=== PATIENT | female | born 1970 | race Caucasian/White ===

== ENCOUNTER 2023-01-22 10:23 | Day surgery (SDC) | payer BC ==
[2023-01-19 16:23] LABS: Absolute Lymphocytes (CBC) 2.5 K/uL (0.7-4.9); Hematocrit 45.3 % (36.0-45.0); Lymphocytes % 30.3 % (15.3-44.8); MCV 89.1 fL (80-100); MPV 7.9 fL (7.6-11.3); Platelets 314 thou/uL (152-406); RBC Red Blood Cell Count 5.08 M/uL (3.86-4.86)
[2023-01-19 16:45] LABS: Albumin 4.1 g/dL (3.4-5.0); Bilirubin Direct 0.2 mg/dL (0-0.2); Bilirubin Indirect, Calculated 0.4 mg/dL (0.2-0.8); Bilirubin Total 0.6 mg/dL (0.2-1.0); Potassium 3.6 mEq/L (3.5-5.1); Protein, Total 7.6 g/dL (6.4-8.2)
--- NOTE | 2023-01-19 16:58 | RAD REPORT ---
EXAM DESCRIPTION: RAD - Chest Pa And Lat (2 Views) - 01/19/2023 4:07 pm CLINICAL HISTORY: Pre op pending cholecystectomy. Hypertension COMPARISON: CHEST PA AND LAT 2 VIEW dated 05/16/2012 TECHNIQUE: PA and lateral views of the chest were obtained. FINDINGS: The lungs are clear. Heart size is normal and central vasculature is within normal limits. No pleural effusion or pneumothorax seen. No acute bony finding noted. IMPRESSION: No acute cardiopulmonary process.
[2023-01-22] MEDS ORDERED: ONDANSETRON 4 MG/2 ML VIAL ONE ×2 (10:30→13:59)
[2023-01-22] MEDS ORDERED: propofoL 200 MG/20 ML VIAL IV ONE (10:30)
[2023-01-22] MEDS ORDERED: GLYCOPYRROLATE 0.2 MG/ML SYR ONE (10:30)
[2023-01-22] MEDS ORDERED: FENTANYL CITR 100 MCG/2 ML ONE ×2 (10:30→12:44)
[2023-01-22] MEDS ORDERED: ROCURONIUM 50 MG/5 ML VIAL IV ONE (10:30)
[2023-01-22] MEDS ORDERED: NEOSTIGMINE 1 MG/ML -10 ML VIAL ONE (10:30)
[2023-01-22] MEDS ORDERED: MIDAZOLAM HCL 2 MG/2 ML INJ ONE (10:31)
[2023-01-22] MEDS ORDERED: LIDOCAINE 2% MPF 5 ML VIAL ONE (10:31)
[2023-01-22] MEDS ORDERED: Ringers Lactate 1,000 ML IV ONE (10:38)
[2023-01-22 11:00] VITALS: O2SAT 100
[2023-01-22] MEDS: CEFOXITIN SODIUM 1 GM/VIAL ONE ×2 (11:46→12:15)
[2023-01-22] MEDS ORDERED: dexAMETHasone 4 MG/ML VIAL ONE (12:44)
[2023-01-22] MEDS: HYDROMORPHONE HCL 1 MG/ML INJ ONE ×2 (14:09→14:10)
[2023-01-22] MEDS ORDERED: HYDROMORPHONE HCL 1 MG/ML INJ ONE (14:30)
[2023-01-22 14:46] VITALS: BP 122/69; TEMP 97
--- NOTE | 2023-01-22 14:55 | P.BOP ---
Preoperative diagnosis: symptomatic cholelithiasis, acute cholecystitis Postoperative diagnosis: same, umbilical hernia Primary procedure: Laparoscopic cholecystectomy Secondary procedure: open repair of umbilical hernia Estimated blood loss: <10cc Specimen: GB Findings: as above, omaentum incarcerated on umbilical hernia Anesthesia: General Complications: None Transferred to: Recovery Room Condition: Good
[2023-01-22] MEDS ORDERED: HYDROCODONE/APAP 7.5/325 MG TAB ONE (15:19)
--- NOTE | 2023-01-23 13:29 | OP ---
Date of Procedure: 01/23/2023 Surgeon: Richie Peña MD Preoperative Diagnoses: Symptomatic cholelithiasis, acute cholecystitis. Postoperative Diagnoses: Symptomatic cholelithiasis, acute cholecystitis, umbilical hernia. Procedures: Laparoscopic cholecystectomy, open repair of umbilical hernia. Estimated Blood Loss: Less than 10 cc. Specimen: Gallbladder. Anesthesia: General plus local. Indication: This is the case of a 52-year-old patient, who comes to us with above diagnoses. Fully explained the benefits, alternatives, and risks of laparoscopic possible open cholecystectomy, which include, but not limited to infection, bleeding, damage to adjacent structures, anesthesia complicati on, choledocholithiasis, pancreatitis, bile leak, CT, and even . She also understands this may not relieve the symptoms. She might need more than one surgical intervention. She understood, robbin d a consent. Description Of Procedure: The patient was brought to the operating room and placed in supine positio n. Anesthesia was without complication. Abdominal area was prepped and draped in usual sterile fash ion. Marcaine 0.5% was injected for local anesthetic followed by sharp incision of the skin in the i nfraumbilical region. Once we did that, we noticed the patient to have an umbilical hernia and herni a sac was removed. Content was removed. Fascial edges were cleaned. Then, after that, we placed Vi cryl #1 inside the fascia. This allowed me to put a Rufus trocar through it and obtained pneumoperi toneum. After that, we placed 3 more trocars, 5 mm each one of them in the epigastric and right uppe r quadrant area. At that moment, we put a grasper in the fundus of the gallbladder, another grasper in the infundibulum, retracting the gallbladder in the inferolateral fashion exposing the triangle of Calot, obtaining critical view. Cystic duct and cystic artery were clearly isolated, freed circumfe rentially, and a connection between those and the gallbladder were clearly identified. I proceeded t o ligate those by using at least 3 clips proximal, 1 clip distal, ligation in middle. Same was done with the cystic artery. No bile leak. No bleeding. The gallbladder was removed from liver using Jean vie cauterizer and removed from abdominal cavity using EndoCatch through umbilical incision. The are a was inspected once again. No bile leak. No bleeding. At that moment, I proceeded to remove the t rocars under direct vision, deflated pneumoperitoneum, closed the pneumoperitoneum, closed the fascia with #1 Vicryl, irrigated subcutaneous tissue, and closed the umbilical hernia with #1 Vicryl. Then , subcutaneous tissue was closed with 3-0 chromic and then the skin was approximated with 3-0 chromic . Sponge count and instrument counts correct. The patient tolerated the procedure well. The patien t was sent to recovery in stable condition. TIGRE/ADONAY Voice ID: [id number] Report ID: [id number]
--- NOTE | 2023-01-23 13:29 | DS ---
Date of Discharge: 01/22/2023 Diagnoses: Symptomatic cholelithiasis, acute cholecystitis, right upper quadrant abdominal pain, umb ilical hernia. Procedures: Laparoscopic cholecystectomy, open repair of umbilical hernia. Disposition: Home. Activity: As tolerated. No heavy lifting. Plan: Follow up in my office in 1 week. Call for appointment at [phone]. Keep area dry for 48 mackenzie rs, then may shower. Keep Steri-Strip intact. For medications, see orders. TIGRE/ADONAY Voice ID: [id number] Report ID: [id number]
--- NOTE | 2023-01-23 13:42 | EKG ---
Test Date: 2023-01-19 Test Time: 16:43:34 Professor Of Graphic Design: GENNY MEASUREMENT RESULTS: Intervals: Rate: 85 IL: 150 QRSD: 70 QT: 352 QTc: 418 [place]: P: 63 IL: 150 QRS: 3 T: 66 INTERPRETIVE STATEMENTS: Normal sinus rhythm Low voltage QRS Cannot rule out Anterior infarct, age undetermined Abnormal ECG No previous ECG available for comparison Electronically Signed On 01-23-23 13:31:13 CHASSIS MECHANIC by Abad Espino
== END 2023-01-22 15:47 | disposition home or self-care (01) ==
LOC: OR 10:23
PROVIDERS: ATTEND Surgery
PROC: 0WQF0ZZ Repair Abdominal Wall, Open Approach (ICD-10-PCS; 2023-01-22)
PROC: 0FT44ZZ Resection of Gallbladder, Percutaneous Endoscopic Approach (ICD-10-PCS; principal; 2023-01-22 12:00)
DX: K80.12 Calculus of gallbladder with acute and chronic cholecystitis without obstruction (principal); K42.9 Umbilical hernia without obstruction or gangrene; E03.9 Hypothyroidism, unspecified; E66.01 Morbid (severe) obesity due to excess calories; Z68.41 Body mass index [BMI] 40.0-44.9, adult; Z79.899 Other long term (current) drug therapy
CPT/HCPCS: 93005; 85025; 80048; 36415; 80076; 88302; 88304; 83690; 71046; 47562; 49593; J2704; J1100; J2710; J2001; J2250; J3010 ×2; J1170 ×2; J0694; J2405 ×2; J7120